=== PATIENT | female | born 1930 | race Two or more races ===

== ENCOUNTER 2018-10-02 09:26 | Outpatient (CLI) | payer OTHER ==
[~2018-10-02 09:26] MED LIST: ACTOS15 MG PO; AVANDAMET 1 MG/1 TAB PO; AVANDIA4 MG PO; DIOVAN160 M1 PO; DIOVAN320 MG; DIOVAN40 MG PO; DOLOGESIC CAPLE1 TAB PO; JANUMET 50-1,1 UDTAB PO; JANUVIA25 MG PO; PERCOCET 5/321 UDTAB PO; PROVENTIL3 ML/2.5 M IH; TESSALON PERLE100 M1 PO; TUSSI-PRES LIQ120 ML PO; ULTRACET PO; [UNRECOGNIZED DRUG - OTHER] PO
== END 2018-10-02 09:30 | disposition home or self-care (01) ==
LOC: LAB 09:26
DX: B96.1 Klebsiella pneumoniae [K. pneumoniae] as the cause of diseases classified elsewhere (principal); N39.0 Urinary tract infection, site not specified

== ENCOUNTER 2018-10-13 06:17 | Outpatient (CLI) | payer OTHER | END 2018-10-13 06:25 | disposition home or self-care (01) | LOC: LAB 06:17 | DX: N39.0 Urinary tract infection, site not specified (principal) ==

== ENCOUNTER 2019-09-19 14:27 | Emergency (ER) | payer OTHER ==
[~2019-09-19] VITALS: Ht 147.3 cm; Wt 63.5 kg
[2019-09-19] MEDS ORDERED: AVAPRO75 MG PO (14:47)
== END 2019-09-19 18:19 | disposition home or self-care (01) ==
LOC: ER 14:27 → CPU-OBS 14:33 → ER 18:19
DX: I16.0 Hypertensive urgency (principal); I10 Essential (primary) hypertension; R51 Headache; N39.0 Urinary tract infection, site not specified